=== PATIENT | male | born 1945 | race Caucasian/White ===

== ENCOUNTER 2016-11-05 00:44 | Emergency (ER) | payer OTHER ==
[~2016-11-05] VITALS: Ht 172.7 cm; Wt 80.0 kg
[~2016-11-05 00:44] MED LIST: AMPI500 PO; BETA BLOCKER; LORA-392 PO; POTA75TA PO; SERO100T PO; ZOLP1TAB32 PO
[2016-11-05 00:57] VITALS: BP 208/91; PULSE 96; RESP 16; TEMP 98.6; O2SAT 97
[2016-11-05] MEDS ORDERED: OMEP40CA2 PO (00:59)
[2016-11-05] MEDS ORDERED: SPIR50TA PO (00:59)
[2016-11-05] MEDS ORDERED: CELE20TA PO (00:59)
[2016-11-05] MEDS ORDERED: ALPR1TAB3 PO (00:59)
[2016-11-05] MEDS ORDERED: FOLI400T PO (00:59)
[2016-11-05] MEDS ORDERED: NADO20TA PO (00:59)
[2016-11-05] MEDS ORDERED: TEMA15CA PO (00:59)
--- NOTE | 2016-11-05 01:04 | PD ---
HPI Chief Complaint: Psychiatric Symptoms Time Seen by Provider: 01:00 Travel History International Travel<30 days: No Contact w/Intl Traveler<30days: No Traveled to known affect area: No History of Present Illness HPI 71-year-old male with history of depression, hypertension, tinnitus, presents under a oconnor act initiated by the Police Department. According to the Oconnor act form, "Guillermo duckworth is intoxicated and keeps arguing with his roommate. He told her he was going to kill her and her small dog, which made her fear for her safety and barricade herself in her bedroom. He is on various medications for pain, sleep, and depression." The patient reports that his girlfriend is "off kilter" and had a "nervous breakdown" tonight and then called the police. The patient reports that he can be verbally aggressive sometimes but does not believe that he did today. He disputes the O[place]nor act statement. He endorses drinking 5 beers tonight. He drinks on a daily basis. Denies any drug use. Denies any suicidal or homicidal ideation. He has an abrasion to the left wrist , he reports that he was scratched there by his girlfriend. Last tetanus vaccination unknown. No other complaints. PFSH Past Medical History Arthritis: Yes (HANDS AND FEET) Anxiety: Yes Depression: Yes Diabetes: No Diminished Hearing: Yes ([place] , HX OF TINNITIS) Hypertension: Yes Insomnia: Yes Integumentary: Yes (LACERATION ON LEFT EAR) Tetanus Vaccination: Unknown Influenza Vaccination: No Social History Alcohol Use: Yes (DRINKS 4-5 BEERS PER DAY FOR 50 YRS) Tobacco Use: No Substance Use: Yes Allergies-Medications (Allergen,Severity, Reaction): Coded Allergies: mold (Unverified Allergy, Severe, 11/05/16) Uncoded Allergies: FUNGUS (Allergy, Severe, 01/10/14) SEASONAL (Allergy, Severe, 01/10/14) Reported Meds & Prescriptions Reported Meds & Active Scripts Active Reported Alprazolam 1 Mg Tab 1 Mg PO Q6H PRN Omeprazole 40 Mg Cap 40 Mg PO DAILY Nadolol 20 Mg Tab 20 Mg PO DAILY Celexa (Citalopram Hydrobromide) 20 Mg Tab 20 Mg PO DAILY Folic Acid 400 Mcg Tab 400 Mcg PO DAILY Spironolactone 50 Mg Tab 50 Mg PO BIDPC Temazepam 15 Mg Cap 15 Mg PO HS PRN Review of Systems Except as stated in HPI: all other systems reviewed are Neg Physical Exam Narrative GENERAL: Well-developed well-nourished male in no acute distress answering questions appropriately. SKIN: Warm and dry. Abrasion left wrist. HEAD: Atraumatic. Normocephalic. EYES: Pupils equal and round. No scleral icterus. No injection or drainage. ENT: No nasal bleeding or discharge. Mucous membranes pink and moist. NECK: Trachea midline. No JVD. CARDIOVASCULAR: Regular rate and rhythm. No murmur appreciated. RESPIRATORY: No accessory muscle use. Clear to auscultation. Breath sounds equal bilaterally. GASTROINTESTINAL: Abdomen soft, non-tender, nondistended. Hepatic and splenic margins not palpable. MUSCULOSKELETAL: No obvious deformities. No clubbing. No cyanosis. No edema. NEUROLOGICAL: Awake and alert. No obvious cranial nerve deficits. Motor grossly within normal limits. Normal speech. PSYCHIATRIC: Appropriate mood and affect; insight and judgment normal. Data Data Last Documented VS Vital Signs Date Time Temp Pulse Resp B/P (MAP) Pulse Ox O2 Delivery O2 Flow Rate FiO2 11/05/16 01:59 144/67 (92) 11/05/16 00:57 98.6 96 16 97 Room Air Orders Orders Complete Blood Count With Diff (11/05/16 00:57) Comprehensive Metabolic Panel (11/05/16 00:57) Psych Screen (11/05/16 00:57) Drug Screen, Random Urine (11/05/16 00:57) Alcohol (Ethanol) (11/05/16 00:57) Clonidine (Catapres) (11/05/16 01:15) Potassium Chloride (Kcl) (11/05/16 02:15) Labs Laboratory Tests Test 11/05/16 01:00 11/05/16 01:10 White Blood Count 8.5 TH/MM3 Red Blood Count 4.12 MIL/MM3 Hemoglobin 14.7 GM/DL Hematocrit 43.1 % Mean Corpuscular Volume 104.5 FL Mean Corpuscular Hemoglobin 35.7 PG Mean Corpuscular Hemoglobin Concent 34.1 % Red Cell Distribution Width 13.9 % Platelet Count 72 TH/MM3 Mean Platelet Volume 8.8 FL Neutrophils (%) (Auto) 52.2 % Lymphocytes (%) (Auto) 38.9 % Monocytes (%) (Auto) 6.4 % Eosinophils (%) (Auto) 1.2 % Basophils (%) (Auto) 1.3 % Neutrophils # (Auto) 4.4 TH/MM3 Lymphocytes # (Auto) 3.3 TH/MM3 Monocytes # (Auto) 0.5 TH/MM3 Eosinophils # (Auto) 0.1 TH/MM3 Basophils # (Auto) 0.1 TH/MM3 CBC Comment AUTO DIFF Differential Comment AUTO DIFF CONFIRMED Platelet Estimate LOW Platelet Morphology Comment NORMAL Red Cell Morphology Comment NORMAL Blood Urea Nitrogen 7 MG/DL Creatinine 0.71 MG/DL Random Glucose 118 MG/DL Total Protein 7.4 GM/DL Albumin 3.0 GM/DL Calcium Level 8.7 MG/DL Alkaline Phosphatase 113 U/L Aspartate Amino Transf (AST/SGOT) 109 U/L Alanine Aminotransferase (ALT/SGPT) 61 U/L Total Bilirubin 2.0 MG/DL Sodium Level 145 MEQ/L Potassium Level 3.2 MEQ/L Chloride Level 108 MEQ/L Carbon Dioxide Level 25.8 MEQ/L Anion Gap 11 MEQ/L Estimat Glomerular Filtration Rate 110 ML/MIN Ethyl Alcohol Level 374 MG/DL Urine Opiates Screen NEG Urine Barbiturates Screen NEG Urine Amphetamines Screen NEG Urine Benzodiazepines Screen POS Urine Cocaine Screen NEG Urine Cannabinoids Screen NEG MDM Medical Decision Making Medical Screen Exam Complete: Yes Emergency Medical Condition: Yes Medical Record Reviewed: Yes Differential Diagnosis Substance-induced mood disorder, adjustment reaction, acute psychosis, major depressive disorder Narrative Course 71-year-old male who drinks on a daily basis presents under O[place] act after apparently threatening his girlfriend. Mental health screening discussed with the patient. Psychiatric screen ordered. He has a minor abrasion on the left wrist. Tetanus status updated. He was hypertensive. He reports that he is on 1 blood pressure medication, he does not remember the name, and he did not take it yesterday because he did not feel like it. Therefore he will be given a dose of clonidine. Lab work has been reviewed. Thrombocytopenia, macrocytosis, elevated liver enzymes with an AST almost 2 times ALT levels, consistent with chronic alcohol abuse. Potassium 3.2, this will be replenished orally. Alcohol level 374. Positive for benzodiazepines. Medical cleared for psychiatric disposition. Diagnosis Primary Impression: Substance induced mood disorder Stiven Bhandari Nov 05, 2016 01:04
[2016-11-05] MEDS ORDERED: cloNIDine HCL 0.1 MG TAB PO ONE (01:15)
[2016-11-05 01:19] LABS: AUTOMATED NEUTROPHIL # 4.4 TH/MM3 (1.8-7.7); BASOPHIL # 0.1 TH/MM3 (0-0.2); BASOPHIL % 1.3 % (0.0-2.0); EOSINOPHIL # 0.1 TH/MM3 (0-0.4); EOSINOPHIL % 1.2 % (0.0-4.0); HEMATOCRIT 43.1 % (39.0-51.0); LYMPH % 38.9 % (9.0-44.0); LYMPHOCYTE # 3.3 TH/MM3 (1.0-4.8); MEAN CELL VOLUME 104.5 FL (80.0-100.0); MEAN CORPUSCULAR HEMOGLOBIN 35.7 PG (27.0-34.0); MEAN CORPUSCULAR HGB CONC 34.1 % (32.0-36.0); MONO % 6.4 % (0.0-8.0); NEUT % 52.2 % (16.0-70.0); PLATELET COUNT 72 TH/MM3 (150-450); RED BLOOD COUNT 4.12 MIL/MM3 (4.50-5.90); RED CELL DISTRIBUTION WIDTH 13.9 % (11.6-17.2); WHITE BLOOD COUNT 8.5 TH/MM3 (4.0-11.0)
[2016-11-05 01:21] LABS: HEMO FLAGS AUTO DIFF
[2016-11-05 01:33] LABS: PLATELET ESTIMATE SMEAR LOW (NORMAL); PLATELET MORPHOLOGY NORMAL (NORMAL); SCAN/DIFF AUTO DIFF CONFIRMED
[2016-11-05 01:55] LABS: ANION GAP 11 MEQ/L (5-15); AST (GOT) 109 U/L (15-37); BICARBONATE 25.8 MEQ/L (21.0-32.0); BLOOD UREA NITROGEN 7 MG/DL (7-18); CHLORIDE 108 MEQ/L (98-107); GLOMERULAR FILTRATION RATE 110 ML/MIN (>89); POTASSIUM 3.2 MEQ/L (3.5-5.1); SODIUM (NA) 145 MEQ/L (136-145)
[2016-11-05 01:59] VITALS: BP 144/67
[2016-11-05 02:02] LABS: ALCOHOL 374 MG/DL (0-5); ALKALINE PHOSPHATASE 113 U/L (45-117); ALT (GPT) 61 U/L (12-78)
[2016-11-05] MEDS ORDERED: POTASSIUM CHLORIDE 20 MEQ CONTROLLED RELEASE TAB PO ONE (02:15)
[2016-11-05 04:22] VITALS: BP 166/79; PULSE 83; RESP 18; O2SAT 95
[2016-11-05 06:00] VITALS: BP 164/71; PULSE 90; RESP 18; O2SAT 94
[2016-11-05 13:02] VITALS: BP 172/74; PULSE 94; RESP 18; O2SAT 93
[2016-11-05] MEDS ORDERED: FLUMAZENIL 0.5 MG/5 ML VIAL IV PUSH PRN (13:15)
[2016-11-05] MEDS ORDERED: LORazepam 2 MG/ML VIAL IV PUSH PRN ×4 (13:15)
[2016-11-05] MEDS ORDERED: LORazepam 2 MG TAB PO PRN (13:15)
--- NOTE | 2016-11-05 16:07 | PD ---
History of Present Illness Chief Complaint: Psychiatric Symptoms Time Seen by Provider: 15:50 Travel History International Travel<30 Days: No Contact w/Intl Traveler<30days: No Known affected area: No Legal Status Legal Status: Oconnor Act Oconnor Act Signed By: Tyson Tripp Oconnor Act Comment: BA signed by: RAPHAEL WELLS Badge#[id number], Case#[id number] History of Present Illness: History of Present Illness 71-year-old male with history of alcohol dependence and a self reported hx of depression who presents to ED under a oconnor act initiated by the Police Department. According to the Oconnor act form, "Guillermo duckworth is intoxicated and keeps arguing with his roommate. He told her he was going to kill her and her small dog, which made her fear for her safety and barricade herself in her bedroom. He is on various medications for pain, sleep, and depression." Patient seen. EMR is reviewed. He has one previous ed visit with complaint of substance induced mood disorder. BAL on arrival to ED was 374. He was monitored in J pod and he dis not present any behavioral concerns. No suicidality. Patient is awake, alert male who is dressed in hospital gown. Fair hygiene. he reports feeling " like I am going in to withdrawal" and has a fine hand tremor. Patient is on CIWA protocol. He is very pleasant. His speech is clear and logical , normal rate and tone. He does not appear to be responding to internal stimuli. There is no objective signs of depression and he does not report feeling depressed. he acknowledges that he has been drinking excessively " I drink every day. I was drinking only beer but I got into some bourbon this week". nHe admits to having lost his temper but denies that he was physical with his roommate as well as denying that he has ever become physical with her. He is aware that he has to find another place to live at this time and has already contacted a friend who is willing ot let him sty with him. Patient denies any suicidality or any homicidal ideation.He states " I a not in that frame of mind and I know I have to stop drinking". Telephone call to his roommate, Carolina Guerrero at [phone]. Message left. Staff have made contact with her and obtained collateral information. PFSH Past Medical History Arthritis: Yes (HANDS AND FEET) Anxiety: Yes Depression: Yes Diabetes: No Diminished Hearing: Yes ([place] , HX OF TINNITIS) Hypertension: Yes Insomnia: Yes Integumentary: Yes (LACERATION ON LEFT EAR) Tetanus Vaccination: Unknown Influenza Vaccination: No Psychiatric History Psychiatric History Hx Psychiatric Treatment: Denies any prior psych hx Has been prescribed antidepressant by PCP. No previous suicdal a ttempmts. History of Inpatient Treatment: No Guns or firearms in home: No Social History Single male. Had been living with a girlfriend. Works as a musician Hx Alcohol Use: Yes (DRINKS 4-5 BEERS PER DAY FOR 50 YRS) Hx Tobacco Use: No Hx Substance Use: Yes Substance Use Type: Alcohol Other Substances Used: Pt admits to drinking daily Hx of Substance Use Treatment: Yes Family Psychiatric History Negative Allergies-Medications (Allergen,Severity, Reaction): Coded Allergies: mold (Unverified Allergy, Severe, 11/05/16) Uncoded Allergies: FUNGUS (Allergy, Severe, 01/10/14) SEASONAL (Allergy, Severe, 01/10/14) Reported Meds & Prescriptions Reported Meds & Active Scripts Active Reported Alprazolam 1 Mg Tab 1 Mg PO Q6H PRN Omeprazole 40 Mg Cap 40 Mg PO DAILY Nadolol 20 Mg Tab 20 Mg PO DAILY Celexa (Citalopram Hydrobromide) 20 Mg Tab 20 Mg PO DAILY Folic Acid 400 Mcg Tab 400 Mcg PO DAILY Spironolactone 50 Mg Tab 50 Mg PO BIDPC Temazepam 15 Mg Cap 15 Mg PO HS PRN Review of Systems Constitutional: COMPLAINS OF: Diaphoretic episodes Endocrine: DENIES: Heat/cold intolerance, Polydipsia, Polyuria, Polyphagia Eyes: DENIES: Blurred vision, Diplopia, Eye inflammation, Eye pain, Vision loss , Photosensitivity, Double Vision Ears, nose, mouth, throat: COMPLAINS OF: Tinnitus Respiratory: DENIES: Apneas, Cough, Snoring, Wheezing, Hemoptysis, Sputum production, Shortness of breath Cardiovascular: DENIES: Chest pain, Palpitations, Syncope, Dyspnea on Exertion , PND, Lower Extremity Edema, Orthopnea, Claudication Gastrointestinal: COMPLAINS OF: Diarrhea Genitourinary: DENIES: Sexual dysfunction, Urinary frequency, Urinary incontinence, Urgency, Hematuria, Dysuria, Nocturia, Penile Discharge, Testicular Pain, Testicular Swelling Musculoskeletal: DENIES: Joint pain, Muscle aches, Stiffness, Joint Swelling, Back pain, Neck pain Integumentary: DENIES: Abnormal pigmentation, Nail changes, Pruritus, Rash Hematologic/lymphatic: DENIES: Bruising, Lymphadenopathy Immunologic/allergic: DENIES: Eczema, Urticaria Neurologic: DENIES: Abnormal gait, Headache, Localized weakness, Paresthesias, Seizures, Speech Problems, Tremor, Poor Balance Psychiatric: COMPLAINS OF: Depression Exam Alert: Yes [place]: Person (ox4) Mood: Calm Affect: Appropriate Speech: Clear, Logical Eye Contact: Normal Memory Intact: Comment (No impairment) Hallucinations: Other (Negative) Suicidal: Ideation (deneis any) Homicidal: Ideation (deneis any) Insight/Judgement Fair . Not impaired. MDM Medical Decision Making Medical Record Reviewed: Yes Assessment/Plan 71-year-old male with history of alcohol dependence and a self reported hx of depression who presents to ED under a oconnor act initiated by the Police Department. According to the Oconnor act form, "Guillermo duckworth is intoxicated and keeps arguing with his roommate. He told her he was going to kill her and her small dog. This in context of alcohol intoxication. Once clinically sober the patient denies any suicidal ideation or any homicidal ideation, intent or plan. he has made plans to move out of the home . he is provided with information regarding sobriety, . he has experience with AA but does not feel that he wants to pursue AA at this time. Lift BA. Discharge home. Orders Orders Complete Blood Count With Diff (11/05/16 00:57) Comprehensive Metabolic Panel (11/05/16 00:57) Psych Screen (11/05/16 00:57) Drug Screen, Random Urine (11/05/16 00:57) Alcohol (Ethanol) (11/05/16 00:57) Clonidine (Catapres) (11/05/16 01:15) Potassium Chloride (Kcl) (11/05/16 02:15) Diet Regular Basic (11/05/16 Breakfast) Diet Regular Basic (11/05/16 Lunch) Lorazepam (Ativan) (11/05/16 13:15) Lorazepam Inj (Ativan Inj) (11/05/16 13:15) Lorazepam (Ativan) (11/05/16 13:15) Lorazepam Inj (Ativan Inj) (11/05/16 13:15) Lorazepam Inj (Ativan Inj) (11/05/16 13:15) Lorazepam Inj (Ativan Inj) (11/05/16 13:15) Flumazenil Inj (Romazicon Inj) (11/05/16 13:15) Diet Regular Basic (11/05/16 Dinner) Results Vital Signs Date Time Temp Pulse Resp B/P (MAP) Pulse Ox O2 Delivery O2 Flow Rate FiO2 11/05/16 13:02 94 18 172/74 (106) 93 Room Air 11/05/16 06:00 90 18 164/71 (102) 94 Room Air 11/05/16 04:22 83 18 166/79 (108) 95 Room Air 11/05/16 01:59 144/67 (92) 11/05/16 00:57 98.6 96 16 208/91 (130) 97 Room Air Laboratory Tests Test 11/05/16 01:00 11/05/16 01:10 White Blood Count 8.5 Red Blood Count 4.12 Hemoglobin 14.7 Hematocrit 43.1 Mean Corpuscular Volume 104.5 Mean Corpuscular Hemoglobin 35.7 Mean Corpuscular Hemoglobin Concent 34.1 Red Cell Distribution Width 13.9 Platelet Count 72 Mean Platelet Volume 8.8 Neutrophils (%) (Auto) 52.2 Lymphocytes (%) (Auto) 38.9 Monocytes (%) (Auto) 6.4 Eosinophils (%) (Auto) 1.2 Basophils (%) (Auto) 1.3 Neutrophils # (Auto) 4.4 Lymphocytes # (Auto) 3.3 Monocytes # (Auto) 0.5 Eosinophils # (Auto) 0.1 Basophils # (Auto) 0.1 CBC Comment AUTO DIFF Differential Comment AUTO DIFF CONFIRMED Platelet Estimate LOW Platelet Morphology Comment NORMAL Red Cell Morphology Comment NORMAL Blood Urea Nitrogen 7 Creatinine 0.71 Random Glucose 118 Total Protein 7.4 Albumin 3.0 Calcium Level 8.7 Alkaline Phosphatase 113 Aspartate Amino Transf (AST/SGOT) 109 Alanine Aminotransferase (ALT/SGPT) 61 Total Bilirubin 2.0 Sodium Level 145 Potassium Level 3.2 Chloride Level 108 Carbon Dioxide Level 25.8 Anion Gap 11 Estimat Glomerular Filtration Rate 110 Ethyl Alcohol Level 374 Urine Opiates Screen NEG Urine Barbiturates Screen NEG Urine Amphetamines Screen NEG Urine Benzodiazepines Screen POS Urine Cocaine Screen NEG Urine Cannabinoids Screen NEG Diagnosis Primary Impression: Alcohol dependence Additional Impression: Substance induced mood disorder Psychiatrically Cleared: Yes Med/ Other Pt Specific Info: No Change to Meds Disposition: 01 DISCHARGE HOME Condition: Stable Problem Qualifiers Primary Impression: Alcohol dependence Qualified Codes: F10.220 - Alcohol dependence with intoxication, uncomplicated Leticia Delvalle [facility] Nov 05, 2016 16:06
[2016-11-05] MEDS: LORazepam 1 MG TAB PO PRN ×2 (16:16→16:25)
== END 2016-11-05 18:39 | disposition home or self-care (01) ==
LOC: NEPD 00:44 → NEPJ 18:39
DX: Z02.89 Encounter for other administrative examinations (principal); F10.14 Alcohol abuse with alcohol-induced mood disorder; Y90.8 Blood alcohol level of 240 mg/100 ml or more; I10 Essential (primary) hypertension; M19.90 Unspecified osteoarthritis, unspecified site
CPT/HCPCS: 80053; 80307; 85025; 99284